=== PATIENT | male | born 1980 | race Caucasian/White ===

== ENCOUNTER 2018-04-21 13:43 | Emergency (ER) | payer OTHER ==
--- NOTE | 2018-04-21 15:36 | RAD ---
INDICATION: Right testicular pain. COMPARISON: There are no relevant prior studies available for comparison. TECHNIQUE: Multiple real-time images of the testicles were obtained including color Doppler images and Doppler tracings. FINDINGS: The testicles are normal in size, shape and echogenicity. The right testicle measured 3.8 x 2.9 x 3.7 cm and the left testicle measured 3.0 x 2.6 x 4.0 cm. No intratesticular mass is seen. There is symmetric vascular flow within both testicles. There is slight increased vascularity in the right epididymal tail possibly indicating epididymitis. There is a small cyst in the right epididymal head measuring 4 x 3 x 4 mm. There is a small right hydrocele. IMPRESSION: MILD INCREASED VASCULARITY IN THE RIGHT EPIDIDYMAL TAIL SUGGESTING THE POSSIBILITY OF EPIDIDYMITIS.
[2018-04-21 16:21] LABS: Urine Appearance Clear; Urine Blood Negative (Negative); Urine Color Straw; Urine Ketones Negative (Negative); Urine Protein Negative (Negative); Urine Specific Gravity 1.008 (1.010-1.030); Urine Urobilinogen Negative (Negative)
[2018-04-21] MEDS ORDERED: Levofloxacin TAB* 250 MG PO ONE (16:40)
--- NOTE | 2018-04-21 17:18 | ED ---
GI/ HPI - HPI Summary HPI Summary: Patient is an otherwise healthy 37-year-old male presenting to the ED with a four-day history of right posterior testicular pain. He endorses pain radiating from the right testicle to the right groin. Denies any trauma. Denies any STD history or possibility of such. He has not tried any medication [id number] for relief. He has not been on antibiotics recently. This happened before. Denies any drainage from the penis or erythema from the testicle. - History of Current Complaint Chief Complaint: EDUrogenitalProblems Time Seen by Provider: 04/21/18 14:18 Stated Complaint: TESTICULAR TRAUMA Hx Obtained From: Patient Onset/Duration: Started Hours Ago Timing: Constant Severity: Moderate Current Severity: Moderate Pain Intensity: 6 Location of Pain: Groin Additional Locations for Males: Testicles Pain Characteristics: Aching, Burning Associated Signs and Symptoms: Positive: Negative Aggravating Factor(s): Nothing Alleviating Factor(s): Nothing - Allergy/Home Medications Allergies/Adverse Reactions: Allergies Allergy/AdvReac Type Severity Reaction Status Date / Time Penicillins Allergy Anaphylatic Verified 04/21/18 13:53 Shock Home Medications: Home Medications Ibuprofen TAB* [Motrin TAB* 400 MG] 400 mg PO Q6H PRN MDD 1600 04/21/18 [ History Confirmed 04/21/18] PMH/Surg Hx/FS Hx/Imm Hx Previously Healthy: Yes - Immunization History Hx Pertussis Vaccination: No Immunizations Up to Date: Yes Infectious Disease History: No Infectious Disease History: Denies: Traveled Outside the [place] in Last 30 Days - Social History Occupation: Unemployed Lives: Alone - [place] Alcohol Use: None Hx Substance Use: No Substance Use Type: Reports: None Hx Tobacco Use: Yes Smoking Status (MU): Former Smoker Review of Systems Constitutional: Negative Negative: Fever, Chills, Fatigue, Skin Diaphoresis Negative: Palpitations, Chest Pain Negative: Shortness Of Breath, Cough Positive: Abdominal Pain - R groin pain Genitourinary: Negative Positive: no symptoms reported, see HPI Negative: Arthralgia, Myalgia Skin: Negative Neurological: Negative All Other Systems Reviewed And Are Negative: Yes Physical Exam Triage Information Reviewed: Yes Vital Signs On Initial Exam: Initial Vitals Temp Pulse Resp BP Pulse Ox 97.7 F 60 15 123/78 98 04/21/18 13:49 04/21/18 13:49 04/21/18 13:49 04/21/18 13:49 04/21/18 13:49 Vital Signs Reviewed: Yes Appearance: Positive: Well-Appearing, Well-Nourished Skin: Positive: Warm, Skin Color Reflects Adequate Perfusion Head/Face: Positive: Normal Head/Face Inspection Eyes: Positive: EOMI, HIRAM, Conjunctiva Clear Neck: Positive: Supple, No Lymphadenopathy Respiratory/Lung Sounds: Positive: Clear to Auscultation, Breath Sounds Present Cardiovascular: Positive: RRR, Pulses are Symmetrical in both Upper and Lower Extremities Male Genital Exam: Positive: Normal Genitalia, Epididymal Tenderness, Inguinal Tenderness, Scrotum Tenderness (R), Testicular Tenderness (R). Negative: Bleeding, Erythema, High Riding Prostate, Urethral Discharge Musculoskeletal: Positive: Normal, Strength/ROM Intact Neurological: Positive: Speech Normal Psychiatric: Positive: Normal, Affect/Mood Appropriate Diagnostics - Vital Signs Vital Signs Temp Pulse Resp BP Pulse Ox 04/21/18 15:24 63 16 124/75 99 04/21/18 14:24 63 121/86 99 04/21/18 14:22 57 99 04/21/18 13:49 97.7 F 60 15 123/78 98 - Laboratory Lab Results: Lab Results 04/21/18 Range/Units 16:00 Urine Color Straw Urine Appearance Clear Urine pH 7.0 (5-9) Ur Specific [place] 1.008 L (1.010-1.030) Urine Protein Negative (Negative) Urine Ketones Negative (Negative) Urine Blood Negative (Negative) Urine Nitrate Negative (Negative) Urine Bilirubin Negative (Negative) Urine Urobilinogen Negative (Negative) Ur Leukocyte Esterase Negative (Negative) Urine Glucose Negative (Negative) Lab Statement: Any lab studies that have been ordered have been reviewed, and results considered in the medical decision making process. GIGU Course/Dx - Course Course Of Treatment: Patient presents with right testicular pain x 4 days which radiates to the groin on the ipsilateral side. On physical exam the epididymis and spermatic cord are with tenderness but without masses. Positive bilateral cremaster reflex. No abnormal elevation of the R testicle or shortening of the spermatic cord. No scrotal erythema bilaterally. Positive Prehn's sign. No evidence of hydrocele or varicocele on examination. No palpable mass appreciated in the right testes. Pain posteriorly of the testes directly over the epididymis. No drainage or discharge from the penis. Afebrile. Testicular ultrasound performed which shows: IMPRESSION: MILD INCREASED VASCULARITY IN THE RIGHT EPIDIDYMAL TAIL SUGGESTING THE POSSIBILITY OF EPIDIDYMITIS. Patient denies any STDs, recent unprotected or anal sex. He will be treated for bacterial epididymitis without treatment for STDs at this time. STD GC/chlamydia urine sent and are awaiting results at this time. - Diagnoses Provider Diagnoses: Epididymitis Discharge - Sign-Out/Discharge Documenting (check all that apply): Patient Departure - Discharge Plan Condition: Stable Disposition: HOME Prescriptions: Levofloxacin TAB* [Levaquin TAB*] 500 mg PO DAILY #9 tab Patient Education Materials: Epididymitis (ED) Referrals: No Primary Care Phys,NOPCP [Primary Care Provider] - Additional Instructions: Levaquin once daily 10 days First dose given in the ED, next dose to be given 04/22/18 ice and elevation may help If this does not resolve your symptoms, return to the ED - Billing Disposition and Condition Condition: STABLE Disposition: Home
[2018-04-21 17:24] VITALS: BP 121/65
== END 2018-04-21 17:22 | disposition home or self-care (01) ==
LOC: ED 13:43
DX: N45.1 Epididymitis (principal); R10.31 Right lower quadrant pain; Z87.891 Personal history of nicotine dependence
CPT/HCPCS: 76870; 81003; 99283; A9270-GY